=== PATIENT | male | born 1965 | race Caucasian/White ===

== ENCOUNTER → 2021-12-07 12:06 | Outpatient (CLI) | payer OTHER, SELFPAY ==
--- NOTE | ~2021-12-07 | MR_ITS ---
EXAMINATION: MR cervical spine wo con DATE: 12/07/2021 12:47 INDICATION: Cervicalgia TECHNIQUE: Magnetic resonance imaging (MRI) of the cervical spine was performed without intravenous c ontrast. Sequences included sagittal T2-weighted FSE, sagittal T2-weighted FS FSE, sagittal T1-weight ed FSE, axial MERGE and axial T2-weighted FSE. COMPARISON: None FINDINGS: Straightening of the normal cervical lordosis. 1-2 mm anterolisthesis C4 on C5.. Vertebral body heig hts are normal. Bone marrow signal intensity is normal. Mild disc height loss at C4-C5, C5-C6 and C6 -C7. Cord signal intensity is normal. Cervical soft tissues are unremarkable. The following disc leve ls are specifically discussed: C2-C3: Negligible disc bulge. There is mild bilateral uncovertebral joint osteoarthritis. There is mi ld bilateral facet joint osteoarthritis. There is no neural foraminal stenosis. There is no central c anal stenosis. C3-C4: Disc is mildly bulging. There is mild to moderate bilateral uncovertebral joint osteoarthritis . There is mild right and severe left facet joint osteoarthritis. There is mild bilateral neural fora samantha stenosis. There is minimal central canal stenosis. C4-C5: Disc is minimally bulging. There is mild bilateral uncovertebral joint osteoarthritis. There i s mild left and severe right facet joint osteoarthritis. There is mild right and minimal left neural foraminal stenosis. There is mild central canal stenosis with slight flattening of the ventral surfac e of the cord. C5-C6: Annular fissure and small paracentral disc protrusion. There is mild left and moderate right u ncovertebral joint osteoarthritis. There is mild right and mild to moderate left facet joint osteoart hritis. There is minimal bilateral neural foraminal stenosis. There is mild central canal stenosis. C6-C7: Disc bulging, eccentric to the left. There is moderate left and severe right uncovertebral arjun nt osteoarthritis. There is mild bilateral facet joint osteoarthritis. There is mild left and moderat e right neural foraminal stenosis. There is mild central canal stenosis with slight indention of the left ventral surface of the cord. C7-T1: The disc does not extend beyond the endplate margin. There is no uncovertebral joint osteoarth ritis. There is mild bilateral facet joint osteoarthritis. There is no neural foraminal stenosis. The re is no central canal stenosis. IMPRESSION: 1. Mild cervical spondylosis with multilevel cervical facet osteoarthritis, moderate to severe at a f ew levels. Reviewed, dictated and finalized at location A. IMPRESSION: 1. Mild cervical spondylosis with multilevel cervical facet osteoarthritis, mod erate to severe at a few levels.
== END ==
PROVIDERS: PCP Nurse Practitioner; Visit Provider Nurse Practitioner
DX: R20.2 Paresthesia of skin (principal); R20.0 Anesthesia of skin; M54.2 Cervicalgia; M47.812 Spondylosis without myelopathy or radiculopathy, cervical region
CPT/HCPCS: 72141

== ENCOUNTER 2022-05-21 08:36 | Outpatient (CLI) | payer OTHER, SELFPAY ==
[2022-05-21 13:51] LABS: Kit Draw Collected
== END 2022-05-21 08:37 | disposition home or self-care (01) ==
LOC: ANHGOSHLAB 08:38
PROVIDERS: PCP Nurse Practitioner; Visit Provider Nurse Practitioner
DX: E03.9 Hypothyroidism, unspecified (principal); I10 Essential (primary) hypertension; E11.9 Type 2 diabetes mellitus without complications; E78.5 Hyperlipidemia, unspecified
CPT/HCPCS: 36415

== ENCOUNTER 2022-11-26 08:53 | Outpatient (CLI) | payer OTHER, SELFPAY ==
[2022-11-26 16:31] LABS: Basophils Percent Auto 0.5 % (0.2-1.2); Eosinophils Absolute Auto 0.2 K/mm3 (0-0.3); Hematocrit 48.3 % (42.0-52.0); Hemoglobin 16.2 g/dL (14.0-18.0); Immature Granulocyte Absolute 0.02 K/mm3 (0.00-0.031); Immature Granulocyte Percent A 0.3 % (0-0.5); Lymphocytes Absolute Auto 2.26 K/mm3 (0.9-3.2); Lymphocytes Percent Auto 30.6 % (18.3-44.2); Mean Corpuscular HGB Conc 33.5 g/dl (32-36); Mean Corpuscular Hemoglobin 28.7 pg (26-34); Mean Corpuscular Volume 85.6 fl (80-100); Mean Platelet Volume 10.2 fl (7.4-10.4); Monocytes Absolute Auto 0.5 K/mm3 (0.1-0.6); Monocytes Percent Auto 6.4 % (2.6-8.5); Neutrophils Absolute Auto 4.4 K/mm3 (1.3-6.7); Neutrophils Percent Auto 59.2 % (45.5-73.1); Platelet Count Result 305 k/mm3 (150-375); Red Blood Count 5.64 M/mm3 (4.6-6.20); Red Cell Distribution Width 13.6 % (11.5-14.5); White Blood Count 7.4 K/mm3 (4.5-10.0)
[2022-11-26 16:41] LABS: Alanine Aminotransferase 31 U/L (6-50); Albumin Level 4.7 g/dL (3.5-5.1); Alkaline Phosphatase 64 U/L (38-126); Anion Gap 8 mmol/L (8-16); Aspartate Amino Transferase 35 U/L (17-59); Blood Urea Nitrogen 12 mg/dL (9-20); Calcium 8.9 mg/dL (8.4-10.2); Carbon Dioxide 27 mmol/L (22-30); Chloride 106 mmol/L (98-107); Cholesterol 154 mg/dL (0-200); Estimated Glomerular Filt Rate > 60; Glucose 160 mg/dL (65-110); HDL Direct 30 mg/dL; Potassium 3.9 mmol/L (3.4-5.0); Sodium 141 mmol/L (137-145); Triglycerides 237 mg/dL (<150)
[2022-11-26 16:54] LABS: LDL Cholesterol Direct 86 mg/dL
[2022-11-26 17:00] LABS: Vitamin D 25 Hydroxy 34.6 ng/mL
[2022-11-26 17:04] LABS: Microalbumin Urine Random 8.8 mg/L (0-16.7)
[2022-11-26 17:06] LABS: Creatinine Urine 73.6 mg/dL
[2022-11-26 17:11] LABS: Prostate Specific Antigen 0.6 ng/mL (< OR = 4.0)
[2022-11-26 17:20] LABS: Hemoglobin A1C 8.2 % (<5.7)
== END 2022-11-26 08:54 | disposition home or self-care (01) ==
LOC: ANHGOSHLAB 08:54
PROVIDERS: PCP Nurse Practitioner; Visit Provider Nurse Practitioner Family
DX: Z00.00 Encounter for general adult medical examination without abnormal findings (principal); Z13.29 Encounter for screening for other suspected endocrine disorder; Z13.1 Encounter for screening for diabetes mellitus; Z13.21 Encounter for screening for nutritional disorder; Z13.220 Encounter for screening for lipoid disorders; I10 Essential (primary) hypertension; Z12.5 Encounter for screening for malignant neoplasm of prostate; E11.9 Type 2 diabetes mellitus without complications
CPT/HCPCS: 36415; 80053; 80061; 82043; 82306; 83036; 84153; 84443; 85025; G0103

== ENCOUNTER 2023-01-20 07:54 | Day surgery (SDC) | payer OTHER, SELFPAY ==
[2023-01-03 09:09] VITALS: BMI 26.2
[2023-01-07 12:23] VITALS: BMI 25.8
--- NOTE | 2023-01-19 10:51 | WPDANESEPPF ---
Anes - Initial Pre Proc Eval Procedure: Operation Date: 01/20/23 09:30 Proposed Procedures p Screening Colonoscopy - Aldair Stone MD Date/Time: 01/19/23 10:51 Surgeon: Aldair Stone MD Pre Op Diagnosis: Neoplasm Screening Patient Data Age: 57 Gender: M Height: 1.8 m Weight: 84 kg Allergies Allergy/AdvReac Type Severity Reaction Status Date / Time No Known Allergies Allergy Verified 01/20/23 08:24 Home Medications Medication Instructions Recorded Confirmed Type blood sugar diagnostic (OneTouch #100 ea 05/15/21 05/21/22 Rx Ultra Test strips) atorvastatin 20 mg tablet 20 mg PO DAILY #90 tabs 12/17/22 01/20/23 Rx empagliflozin 25 mg tablet 25 mg PO DAILY #90 tabs 12/17/22 01/20/23 Rx (Jardiance) fenofibrate micronized 200 mg 200 mg PO DAILY #90 caps 12/17/22 01/20/23 Rx capsule glyburide 5 mg tablet 5 mg PO BID #180 tabs 12/17/22 01/20/23 Rx levothyroxine 100 mcg tablet 100 mcg PO DAILY #90 tabs 12/17/22 01/20/23 Rx metformin 1,000 mg tablet 1,000 mg PO BID #180 tabs 12/17/22 01/20/23 Rx icosapent ethyl 1 gram capsule 2 g PO BID 90 days #360 caps 12/20/22 01/20/23 Rx (Vascepa) sodium,potassium,mag sulfates 17.5 See Rx Instructions PO .COMPLEX 01/03/23 01/20/23 Rx gram-3.13 gram-1.6 gram oral soln #354 mL (Suprep Bowel Prep Kit) Patient hx anesthesia problems: none Family hx anesthesia problems: none Results Review: All pre-operative results and documents have been reviewed as part of the pre-operative evaluation. [facility] Past Medical History Medical History History of colon polyps Hypertension Hypothyroidism, unspecified Other and unspecified hyperlipidemia Type 2 diabetes mellitus without complications Family History Family History Mother Family history of type 2 diabetes mellitus Father Patient's father is , Onset Age: 38 Social History Social History Smoking status: Never smoker Alcohol intake: never Substance use: never Substance use type: does not use Lack of Transportation: No Lack of Food: Never True Current Housing: I Have Housing Concerned About Future Housing: No Difficulty Paying Gas/Electric Bills: No Difficulty Paying for Meds: No Currently Unemployed: No Education: Bachelor's Degree Difficulty w/ Childcare or Family Care: No Living arrangements: with family Occupation/Education: occupation Gender identity (if verbalized by the patient): Male Spiritual care concerns: No Agree to blood products: Yes Anes - Eval Final PreProcedure Day of Procedure 01/19/23 10:51 Patient weight: overweight Heart: regular rate and rhythm Lungs: clear to auscultation Airway: Mallampati scale class II Neurological: alert and oriented Last oral intake: >/= 8 hours ASA classification: III Emergent: no Anesthetic plan: proceed Anesthesia type and monitoring: general GIVS and standard monitoring Results Review: All pre-operative results and documents have been reviewed as part of the pre-operative evaluation. Informed Consent: The patient's anesthetic plan and its attendant risks and benefits were discussed with the patient/family/POA. Questions were solicited and answers provided to the satisfaction of the patient/family/POA.
[2023-01-20 08:26] VITALS: BP 136/83; PULSE 86; RESP 14; TEMP 36.8; O2SAT 97
[2023-01-20] MEDS: LACTATED RINGERS 1,000 ML 150 ML IV CONT (08:39)
--- NOTE | 2023-01-20 08:45 | PM.HPGS ---
History of Present Illness History of Present Illness Consent: Risks, benefits, and alternatives have been discussed and questions answered. Patient agrees to proceed with procedure. Chief complaint: Neoplasm Screening Narrative: Hussein Barrett is a 57 year old male presents for screening colonoscopy. Patient has a prior history of adenomatous colon polyp removed from the colon in 2016. Patient's current weight appetite and bowel movements are normal. Patient denies abdominal pain. He has had no bleeding. Family history is not contributory. Review of Systems Review of Systems: Review of systems noncontributory. [facility] Past Medical History Medical History History of colon polyps Hypertension Hypothyroidism, unspecified Other and unspecified hyperlipidemia Type 2 diabetes mellitus without complications Family History Family History Mother Family history of type 2 diabetes mellitus Father Patient's father is , Onset Age: 38 Social History Social History Smoking status: Never smoker Alcohol intake: never Substance use: never Substance use type: does not use Lack of Transportation: No Lack of Food: Never True Current Housing: I Have Housing Concerned About Future Housing: No Difficulty Paying Gas/Electric Bills: No Difficulty Paying for Meds: No Currently Unemployed: No Education: Bachelor's Degree Difficulty w/ Childcare or Family Care: No Living arrangements: with family Occupation/Education: occupation Gender identity (if verbalized by the patient): Male Spiritual care concerns: No Agree to blood products: Yes Meds Home Medications and Allergies Home Medications Medication Instructions Recorded Confirmed Type blood sugar diagnostic (OneTouch #100 ea 05/15/21 05/21/22 Rx Ultra Test strips) atorvastatin 20 mg tablet 20 mg PO DAILY #90 tabs 12/17/22 01/20/23 Rx empagliflozin 25 mg tablet 25 mg PO DAILY #90 tabs 12/17/22 01/20/23 Rx (Jardiance) fenofibrate micronized 200 mg 200 mg PO DAILY #90 caps 12/17/22 01/20/23 Rx capsule glyburide 5 mg tablet 5 mg PO BID #180 tabs 12/17/22 01/20/23 Rx levothyroxine 100 mcg tablet 100 mcg PO DAILY #90 tabs 12/17/22 01/20/23 Rx metformin 1,000 mg tablet 1,000 mg PO BID #180 tabs 12/17/22 01/20/23 Rx icosapent ethyl 1 gram capsule 2 g PO BID 90 days #360 caps 12/20/22 01/20/23 Rx (Vascepa) sodium,potassium,mag sulfates 17.5 See Rx Instructions PO .COMPLEX 01/03/23 01/20/23 Rx gram-3.13 gram-1.6 gram oral soln #354 mL (Suprep Bowel Prep Kit) Allergies Allergy/AdvReac Type Severity Reaction Status Date / Time No Known Allergies Allergy Verified 01/20/23 08:24 Vital Signs Vital Signs - 24 hr 01/20/23 08:26 Temperature 98.2 F Pulse Rate 86 Respiratory Rate 14 Blood Pressure 136/83 Pulse Oximetry 97 Oxygen Delivery Room Air Exam Narrative: Physical exam reveals patient to be alert. Signs stable. HEENT exam is unremarkable. Patient is anicteric. Is are clear to auscultation and percussion. Heart is without murmur or extra sounds. Abdomen bowel sounds are present soft nontender with no organomegaly. Digital external rectal exam is normal. Assessment and Plan Assessment and plan (1) History of colon polyps: Code(s): Z86.010 - Personal history of colonic polyps Status: Acute Assessment and Plan: Patient has a history of adenomatous colon polyps removed from the colon in 2016. Plan for surveillance colonoscopy now. Consider this at 5 year intervals.
[2023-01-20 09:33] LABS: Glucose Point of Care 159 mg/dl (65-105)
[2023-01-20 09:48] VITALS: BP 103/74; PULSE 80; RESP 16; O2SAT 97
[2023-01-20 09:58] VITALS: BP 109/79; PULSE 72; RESP 16; O2SAT 97
[2023-01-20 10:08] VITALS: BP 119/83; PULSE 74; RESP 16; O2SAT 98
--- NOTE | 2023-01-20 12:35 | WPDANESPN ---
Anes - Prog Note Post-Op Date/Time: 01/20/23 12:35 Cardiovascular status: normal Respiratory status: normal Airway patency: baseline Mental status: baseline Post-Op hydration status: normal Vital Signs: Last Vital Signs Temp 36.8 C 01/20/23 08:26 Pulse 74 01/20/23 10:08 Resp 16 01/20/23 10:08 BP 119/83 01/20/23 10:08 Pulse Ox 98 01/20/23 10:08 O2 Del Method Room Air 01/20/23 10:08 Pain Score (VAS): 0 I/O: Intake & Output 01/19/23 01/20/23 01/20/23 23:59 07:59 15:59 Intake Total 500 Balance 500 01/20/23 08:36 POC Capillary Glucose 159 H Post-procedural complaints: none Patient Feedback: Patient satisfied with anesthetic care. Other Findings: Patient vital signs back to baseline. Patient denies nausea and vomiting. Patient's pain under control. Patient OK for discharge.
== END 2023-01-20 10:22 | disposition home or self-care (01) ==
PROVIDERS: Visit Provider Internal Medicine Gastroenterology
PROC: 0DJD8ZZ Inspection of Lower Intestinal Tract, Via Natural or Artificial Opening Endoscopic (ICD-10-PCS; CPT 45378; principal; 2023-01-20 09:30)
DX: Z86.010 Personal history of colon polyps (principal); K57.30 Diverticulosis of large intestine without perforation or abscess without bleeding; K64.8 Other hemorrhoids
CPT/HCPCS: 45378

== ENCOUNTER 2023-05-27 08:20 | Outpatient (CLI) | payer OTHER, SELFPAY ==
[2023-05-27 11:58] LABS: Basophils Percent Auto 0.8 % (0.2-1.2); Eosinophils Absolute Auto 0.2 K/mm3 (0-0.3); Eosinophils Percent Auto 3.7 % (0-4.4); Hemoglobin 16.2 g/dL (14.0-18.0); Immature Granulocyte Absolute 0.02 K/mm3 (0.00-0.031); Immature Granulocyte Percent A 0.4 % (0-0.5); Lymphocytes Absolute Auto 2.23 K/mm3 (0.9-3.2); Lymphocytes Percent Auto 43.4 % (18.3-44.2); Mean Corpuscular HGB Conc 33.1 g/dl (32-36); Mean Corpuscular Hemoglobin 28.4 pg (26-34); Mean Corpuscular Volume 85.8 fl (80-100); Monocytes Absolute Auto 0.3 K/mm3 (0.1-0.6); Monocytes Percent Auto 6.6 % (2.6-8.5); Neutrophils Absolute Auto 2.3 K/mm3 (1.3-6.7); Neutrophils Percent Auto 45.1 % (45.5-73.1); Platelet Count Result 273 k/mm3 (150-375); Red Blood Count 5.71 M/mm3 (4.6-6.20); Red Cell Distribution Width 13.4 % (11.5-14.5); White Blood Count 5.1 K/mm3 (4.5-10.0)
[2023-05-27 12:16] LABS: Alanine Aminotransferase 39 U/L (6-50); Albumin Level 4.5 g/dL (3.5-5.1); Alkaline Phosphatase 70 U/L (38-126); Anion Gap 9 mmol/L (8-16); Aspartate Amino Transferase 53 U/L (17-59); Bilirubin,Total 1.1 mg/dL (0.2-1.3); Blood Urea Nitrogen 9 mg/dL (9-20); Calcium 9.1 mg/dL (8.4-10.2); Carbon Dioxide 28 mmol/L (22-30); Chloride 105 mmol/L (98-107); Cholesterol 168 mg/dL (0-200); Estimated Glomerular Filt Rate > 60; Glucose 154 mg/dL (65-110); HDL Direct 30 mg/dL; Sodium 142 mmol/L (137-145); Triglycerides 179 mg/dL (<150)
[2023-05-27 12:27] LABS: LDL Cholesterol Direct 98 mg/dL
[2023-05-27 13:00] LABS: Hemoglobin A1C 8.8 % (<5.7)
== END 2023-05-27 08:21 | disposition home or self-care (01) ==
LOC: ANHGOSHLAB 08:21
PROVIDERS: Visit Provider Nurse Practitioner Family
DX: E11.9 Type 2 diabetes mellitus without complications (principal); E78.5 Hyperlipidemia, unspecified; E03.9 Hypothyroidism, unspecified; Z13.220 Encounter for screening for lipoid disorders; I10 Essential (primary) hypertension
CPT/HCPCS: 36415; 80053; 80061; 83036; 84443; 85025

== ENCOUNTER 2023-12-02 07:55 | Outpatient (CLI) | payer OTHER, SELFPAY ==
[2023-12-02 18:56] LABS: Basophils Percent Auto 0.5 % (0.2-1.2); Eosinophils Absolute Auto 0.2 K/mm3 (0-0.3); Eosinophils Percent Auto 3.2 % (0-4.4); Hematocrit 44.2 % (42.0-52.0); Hemoglobin 14.3 g/dL (14.0-18.0); Immature Granulocyte Absolute 0.02 K/mm3 (0.00-0.031); Immature Granulocyte Percent A 0.4 % (0-0.5); Lymphocytes Absolute Auto 2.62 K/mm3 (0.9-3.2); Mean Corpuscular HGB Conc 32.4 g/dl (32-36); Mean Corpuscular Hemoglobin 28.5 pg (26-34); Mean Platelet Volume 9.2 fl (7.4-10.4); Monocytes Absolute Auto 0.4 K/mm3 (0.1-0.6); Monocytes Percent Auto 7.2 % (2.6-8.5); Neutrophils Absolute Auto 2.3 K/mm3 (1.3-6.7); Neutrophils Percent Auto 41.7 % (45.5-73.1); Platelet Count Result 595 k/mm3 (150-375); Red Blood Count 5.02 M/mm3 (4.6-6.20); Red Cell Distribution Width 12.4 % (11.5-14.5); White Blood Count 5.6 K/mm3 (4.5-10.0)
[2023-12-02 18:59] LABS: Alanine Aminotransferase 17 U/L (6-50); Alkaline Phosphatase 44 U/L (38-126); Anion Gap 9 mmol/L (4-12); Aspartate Amino Transferase 17 U/L (17-59); Bilirubin,Total 0.6 mg/dL (0.2-1.3); Blood Urea Nitrogen 21 mg/dL (9-20); Calcium 11.9 mg/dL (8.4-10.2); Carbon Dioxide 30 mmol/L (22-30); Chloride 104 mmol/L (98-107); Cholesterol 139 mg/dL (0-200); Estimated Glomerular Filt Rate > 60; Glucose 101 mg/dL (65-110); HDL Direct 24 mg/dL; Potassium 4.2 mmol/L (3.4-5.0); Sodium 143 mmol/L (137-145); Triglycerides 165 mg/dL (<150)
[2023-12-02 19:12] LABS: LDL Cholesterol Direct 78 mg/dL
[2023-12-02 19:30] LABS: Prostate Specific Antigen 0.9 ng/mL (< OR = 4.0)
[2023-12-02 20:10] LABS: Hemoglobin A1C 8.5 % (<5.7)
== END 2023-12-02 07:56 | disposition home or self-care (01) ==
LOC: ANHGOSHLAB 07:59
PROVIDERS: PCP Family Medicine; Visit Provider Nurse Practitioner Family
DX: Z00.00 Encounter for general adult medical examination without abnormal findings (principal); I10 Essential (primary) hypertension; E11.9 Type 2 diabetes mellitus without complications; E78.5 Hyperlipidemia, unspecified; E03.9 Hypothyroidism, unspecified
CPT/HCPCS: 36415; 80053; 80061; 83036; 84153; 84443; 85025; G0103

== ENCOUNTER 2024-06-12 10:39 | Outpatient (CLI) | payer OTHER, SELFPAY ==
[2024-06-12 12:52] LABS: Creatinine Urine 71.1 mg/dL
[2024-06-12 13:02] LABS: MALB Creatinine Ratio 16.6 mg/g (0-30); Microalbumin Urine Random 11.8 mg/L (0-16.7)
[2024-06-12 13:06] LABS: Hemoglobin A1C 8.9 % (<5.7)
[2024-06-12 13:15] LABS: Vitamin D 25 Hydroxy 42.9 ng/mL
== END 2024-06-12 10:40 | disposition home or self-care (01) ==
LOC: ANHGOSHLAB 10:40
PROVIDERS: PCP Family Medicine; Visit Provider Family Medicine
DX: E03.9 Hypothyroidism, unspecified (principal); E53.8 Deficiency of other specified B group vitamins; E11.9 Type 2 diabetes mellitus without complications; E55.9 Vitamin D deficiency, unspecified
CPT/HCPCS: 36415; 82043; 82306; 82607; 83036; 84443